=== PATIENT | male | born 1945 | race Caucasian/White ===

== ENCOUNTER 2020-03-01 10:16 | Inpatient (IN) | payer OTHER, MEDICARE ==
[~2020-03-01] VITALS: Ht 177.8 cm; Wt 91.3 kg
[2020-03-01] VITALS (11 sets, daily range): BP systolic 137–179; BP diastolic 65–94
[~2020-03-01 10:16] MED LIST: ASPI-611 PO; ATOR20TA66 PO; CLOP75TA33 PO; LOSA100T57 PO; METF-438 PO; METO-384 PO; NITR0.4T51 SL; TIMO5DRO36 EACHEYE; XAL0.005OS OP
[2020-03-01] MEDS ORDERED: aspirin 81mg tab.chew PO ONE (10:30)
[2020-03-01] MEDS ORDERED: LIDOcaine 1% (10mg/ml)w/preservative injection 20ml MDV ONE (10:33)
[2020-03-01] MEDS ORDERED: iohexol 350 MG/1 ML 200ml bottle ONE (10:33)
[2020-03-01] MEDS ORDERED: fentaNYL/PF 50MCG/1 ML 2ML syringe ONE (10:33)
[2020-03-01] MEDS ORDERED: midazolam 2 mg/2 ml injection ONE (10:33)
[2020-03-01] MEDS ORDERED: heparin 1,000unit/ml 10ml vial 10 ML ONE (10:33)
[2020-03-01] MEDS ORDERED: iohexol 350 MG/ML 50ML vial IV ONE (10:33)
[2020-03-01] MEDS ORDERED: AMLO-94 PO (10:40)
[2020-03-01] MEDS ORDERED: GLIP5TAB13 PO (10:40)
--- NOTE | 2020-03-01 10:44 | NUR ---
PLEASE CALL [facility] [phone] TO UPDATE IN REGARDS TO PT
[2020-03-01 10:45] LABS: BASOPHILS % (AUTO) 0.3 % (0-1); EOSINOPHILS # (AUTO) 0.1 X10'3 (0-0.9); LYMPHOCYTES # (AUTO) 1.9 X10'3 (1.1-4.8); LYMPHOCYTES % (AUTO) 21.6 % (21-51); MEAN CORPUSCULAR HEMOGLOBIN 31.8 PG (27.0-31.0); MEAN CORPUSCULAR HGB CONC 34.6 g/dL (33.0-36.5); MEAN PLATELET VOLUME 8.9 FL (7.4-10.4); MONOCYTES # (AUTO) 0.6 X10'3 (0-0.9); MONOCYTES % (AUTO) 6.9 % (2-12); NEUTROPHILS # (AUTO) 6.3 X10'3 (1.8-7.7); NEUTROPHILS % (AUTO) 70.2 % (42-75); PLATELET COUNT 246 X10'3 (140-440); RED BLOOD COUNT 5.33 X10'6 (4.70-6.10); RED CELL DISTRIBUTION WIDTH 13.7 % (11.5-14.5)
[2020-03-01] MEDS ORDERED: heparin 10,000 units/1 ML INJ IV ONE ×2 (10:45→10:55)
[2020-03-01] MEDS ORDERED: heparin 10,000 units/1 ML INJ IV PRN (10:45)
[2020-03-01] MEDS ORDERED: heparin 25,000 UNIT/250ml bag 250 ML IV SCH (10:45)
--- NOTE | 2020-03-01 10:48 | NUR ---
PATIENT TO [facility] AT THIS TIME, DR MARTINEZ AT BEDSIDE.
[2020-03-01] MEDS: heparin 25,000 UNIT/250ml bag 250 ML IV SCH (10:53)
[2020-03-01 10:59] LABS: ALANINE AMINOTRANSFERASE 61 U/L (12-78); ALBUMIN 4.2 G/DL (3.4-5.0); ALKALINE PHOSPHATASE 150 IU/L (46-116); ANION GAP 9 (8-16); ASPARTATE AMINO TRANSFERASE 33 U/L (10-37); BILIRUBIN,TOTAL 1.2 MG/DL (0.1-1.0); BLOOD UREA NITROGEN 16 MG/DL (7-18); BUN/CREATININE RATIO 15.4 (5.4-32.0); CALCIUM 9.3 MG/DL (8.5-10.1); CHLORIDE 101 MMOL/L (99-107); CREATININE 1.04 MG/DL (0.60-1.10); GLUCOSE 360 MG/DL (70-104); POTASSIUM 4.1 MMOL/L (3.5-5.1); SODIUM 137 MMOL/L (135-145); TOTAL CARBON DIOXIDE 27.1 MMOL/L (24-32); TOTAL PROTEIN 8.3 G/DL (6.4-8.2); eGFR 70 ML/MIN
[2020-03-01] MEDS ORDERED: nitroGLYCERIN-Tridil 50MG/D5W 250 ML IV ONE (10:59)
[2020-03-01] MEDS ORDERED: tirofiban 5mg in NS 100mL 100 ML IV ONE (11:03)
[2020-03-01] MEDS ORDERED: ticagrelor 90mg tablet ONE (11:38)
--- NOTE | 2020-03-01 11:40 | NUR ---
Received report from Jodie in IR.
--- NOTE | 2020-03-01 12:20 | NUR ---
Patient to room with 2 IR nurses and 1 tech, patient placed on monitor has ST elevation in leads AVF, II, III and AVR, with ST depression in AVL lead, MD aware of all the ST elevation and Depression, patient has a Right groin sheath, bruising noted from previous sheath placement from last Saturday noted and observed with IR nurse. Patient in good spirits, ART SBP high MD aware no orders to medicate. Per IR nurse heparin is to be turned off at 0400 03/02/20 once ACT is below 180 sheath can be pulled manual pressure to be applied and a femstop placed after, flat bed rest for 7 hours once sheath is pulled.
[2020-03-01] MEDS ORDERED: aspirin 81mg tab.chew PO SCH (12:33)
[2020-03-01] MEDS ORDERED: carvedilol 6.25mg tablet PO SCH (12:33)
[2020-03-01] MEDS ORDERED: OXAZEpam 15mg capsule PO PRN (12:35)
[2020-03-01] MEDS ORDERED: magnesium hydroxide 30ml (MOM) UD suspension PO PRN (12:35)
[2020-03-01] MEDS ORDERED: cyclobenzaprine 10mg tablet PO PRN (12:35)
[2020-03-01] MEDS ORDERED: amLODIPine 5mg tablet PO SCH (12:35)
[2020-03-01] MEDS ORDERED: acetaminophen 325mg tablet PO PRN (12:35)
[2020-03-01] MEDS ORDERED: HYDROcodone/acetaminophen 10/325mg tab PO PRN (12:35)
[2020-03-01] MEDS ORDERED: lisinopril 20mg tablet PO SCH (12:35)
[2020-03-01] MEDS ORDERED: glucagon, human recombinant 1mg kit SUBCUT PRN (15:15)
[2020-03-01] MEDS ORDERED: dextrose 50%-water 50ml dispensing syringe IV PRN ×2 (15:15)
[2020-03-01] MEDS ORDERED: dextrose ORAL solution 15 GM/59 ML bottle PO PRN ×2 (15:15)
[2020-03-01] MEDS ORDERED: MESSAGE TO PHARMACY PO ONE (15:15)
--- NOTE | 2020-03-01 15:22 | NUR ---
Called DR Kahn informed him of patients high blood sugar of 322, received a hyperglycemic protocol orders, no other new orders at this time
--- NOTE | 2020-03-01 18:18 | NUR ---
Problems reprioritized. Patient report given, questions answered & plan of care reviewed with Emma Dimas .
--- NOTE | 2020-03-01 18:35 | NUR ---
Patient in room CICU 2009. I have received report from rosa may and had the opportunity to ask questions and assume patient care.
--- NOTE | 2020-03-01 19:07 | NUR ---
troponin level 77.65. call service called. awaiting to be called back. Addendum: 03/01/20 at 1909 by Emma Carr RN trop level 77.05
[2020-03-01] MEDS: HYDROcodone/acetaminophen 10/325mg tab PO PRN (19:13)
[2020-03-01] MEDS: carvedilol 6.25mg tablet PO SCH (19:14)
[2020-03-01] MEDS: insulin Lispro (HumaLOG) vial - multi-dose SQ SCH ×2 (19:24→21:11)
--- NOTE | 2020-03-01 19:27 | NUR ---
no response from jessica. answering service paged. critical trop expected value post stent
[2020-03-01] MEDS: insulin glargine (Lantus) pen - multi-dose SQ SCH (21:12)
[2020-03-02] VITALS (19 sets, daily range): BP systolic 103–178; BP diastolic 56–87
[2020-03-02 01:47] LABS: BASOPHILS % (AUTO) 0.2 % (0-1); EOSINOPHILS % (AUTO) 0.3 % (0-6); HEMATOCRIT 41.7 % (42.0-52.0); HEMOGLOBIN 14.7 g/dl (14.0-17.9); LYMPHOCYTES % (AUTO) 9.9 % (21-51); MEAN CORPUSCULAR HEMOGLOBIN 31.8 PG (27.0-31.0); MEAN CORPUSCULAR HGB CONC 35.1 g/dL (33.0-36.5); MEAN CORPUSCULAR VOLUME 90.5 FL (78-98); MEAN PLATELET VOLUME 8.8 FL (7.4-10.4); MONOCYTES # (AUTO) 0.8 X10'3 (0-0.9); MONOCYTES % (AUTO) 7.8 % (2-12); NEUTROPHILS % (AUTO) 81.8 % (42-75); PLATELET COUNT 195 X10'3 (140-440); RED BLOOD COUNT 4.61 X10'6 (4.70-6.10); RED CELL DISTRIBUTION WIDTH 13.7 % (11.5-14.5); WHITE BLOOD COUNT 9.8 X10'3 (4.5-11.0)
[2020-03-02 01:58] LABS: ALANINE AMINOTRANSFERASE 73 U/L (12-78); ALBUMIN 3.3 G/DL (3.4-5.0); ALKALINE PHOSPHATASE 108 IU/L (46-116); ANION GAP 10 (8-16); ASPARTATE AMINO TRANSFERASE 203 U/L (10-37); BILIRUBIN,TOTAL 0.9 MG/DL (0.1-1.0); BLOOD UREA NITROGEN 14 MG/DL (7-18); BUN/CREATININE RATIO 15.4 (5.4-32.0); CALCIUM 8.9 MG/DL (8.5-10.1); CHLORIDE 100 MMOL/L (99-107); CHOL/HDL RATIO 2.6 (0.00-4.99); CHOLESTEROL 103 MG/DL (0-200); CREATININE 0.91 MG/DL (0.60-1.10); GLUCOSE 249 MG/DL (70-104); HDL CHOLESTEROL 40 MG/DL (35-60); LDL CHOLESTEROL 48 MG/DL (50-100); POTASSIUM 3.6 MMOL/L (3.5-5.1); SODIUM 134 MMOL/L (135-145); TOTAL CARBON DIOXIDE 24.5 MMOL/L (24-32); TOTAL PROTEIN 6.7 G/DL (6.4-8.2); TRIGLYCERIDES 97 MG/DL (20-135); eGFR 82 ML/MIN
--- NOTE | 2020-03-02 06:08 | NUR ---
istat 149, arterial line removed. manual pressure held for 20 min, no bleeding or hematoma present. femstop applied. pedal pulses present. will continue to monitor.
--- NOTE | 2020-03-02 06:49 | NUR ---
Patient in room CICU 2009. I have received report from Emma PANG and had the opportunity to ask questions and assume patient care.
[2020-03-02] MEDS: HYDROcodone/acetaminophen 10/325mg tab PO PRN (06:54)
[2020-03-02] MEDS: carvedilol 6.25mg tablet PO SCH ×2 (07:38→19:28)
[2020-03-02] MEDS: amLODIPine 5mg tablet PO SCH (07:38)
[2020-03-02] MEDS: ticagrelor 90mg tablet PO SCH ×2 (07:38→19:37)
[2020-03-02] MEDS: lisinopril 20mg tablet PO SCH (07:39)
[2020-03-02] MEDS: aspirin 81mg tab.chew PO SCH (07:39)
[2020-03-02] MEDS: insulin Lispro (HumaLOG) vial - multi-dose SQ SCH ×4 (09:25→21:47)
[2020-03-02] MEDS: heparin 25,000 UNIT/250ml bag 250 ML IV SCH (11:53)
--- NOTE | 2020-03-02 12:30 | NUR ---
Fem stop off, no signs or symptoms of hematoma or bleeding will continue to monitor
--- NOTE | 2020-03-02 13:56 | NUR ---
Dr. Kahn by to round on patient, stated that patient can be transferred to PCU with tele with same orders, EKG in AM and ambulate
[2020-03-02 14:43] LABS: TROPONIN I 34.55 NG/ML (0.0-0.05)
--- NOTE | 2020-03-02 14:44 | NUR ---
lab called with critical troponin 34.55, called Dr. Kahn's office they will page him with the troponin level
--- NOTE | 2020-03-02 14:51 | NUR ---
DM consult, A1c 9.5, patient seen at bedside and given written DM education handout with verbal review. Pt reports he noticed his eating habits were not how he felt they should be and about a week ago threw away the "junk" food in his kitchen and is eating consistent CHO meals to help better manage his BG, reports he takes his DM meds as prescribed. Addendum: 03/02/20 at [address] Amended: Links added.
--- NOTE | 2020-03-02 15:00 | NUR ---
Called report to maylin PANG ACCE unit, all questions answered.
--- NOTE | 2020-03-02 15:00 | NUR ---
Patient in room MED 309. I have received report from Bell NEUROPSYCHIATRIST and had the opportunity to ask questions and assume patient care.
--- NOTE | 2020-03-02 15:15 | NUR ---
Pt assessment completed and this nurse agrees with prior assessment done by Bell in ICU with no changes noted. Pt VSS denies any pain. He denies any needs at this time. Call light in reach. Addendum: 03/02/20 at 1702 by Kendy Plummer RN error pt assessed at 1530 after arriving to room 309. Pt assessment completed and this nurse agrees with prior assessment done by Bell in ICU with no changes noted. Pt VSS denies any pain. He denies any needs at this time. Call light in reach.
--- NOTE | 2020-03-02 15:20 | NUR ---
Patient transferred to YARA Larry RN at bedside, belongings, chart and meds given to Kendy PANG
--- NOTE | 2020-03-02 15:30 | NUR ---
R groin site is free from s/s of complications, bleeding, and distal pulses present.
--- NOTE | 2020-03-02 18:30 | NUR ---
Problems reprioritized. Patient report given, questions answered & plan of care reviewed with Jerrod PANG.
[2020-03-02] MEDS: insulin glargine (Lantus) pen - multi-dose SQ SCH (21:45)
--- NOTE | 2020-03-03 00:03 | NUR ---
Patient in room MED 309. I have received report from Kendy PANG and had the opportunity to ask questions and assume patient care. Addendum: 03/03/20 at 0003 by Jerrod Vera RN amend time for 03/02 @ 2202
[2020-03-03 03:00] VITALS: BP 109/65
[2020-03-03 06:00] VITALS: BP 110/67
--- NOTE | 2020-03-03 06:30 | NUR ---
Problems reprioritized. Patient report given, questions answered & plan of care reviewed with Rachel PANG.
--- NOTE | 2020-03-03 06:37 | NUR ---
Patient in room MED 309. I have received report from octavia may and had the opportunity to ask questions and assume patient care.
[2020-03-03 08:01] VITALS: BP_SYST 110
[2020-03-03] MEDS: lisinopril 20mg tablet PO SCH (08:01)
[2020-03-03] MEDS: amLODIPine 5mg tablet PO SCH (08:03)
[2020-03-03] MEDS: aspirin 81mg tab.chew PO SCH (08:03)
[2020-03-03] MEDS: ticagrelor 90mg tablet PO SCH (08:03)
[2020-03-03] MEDS: carvedilol 6.25mg tablet PO SCH (08:03)
[2020-03-03] MEDS: insulin Lispro (HumaLOG) vial - multi-dose SQ SCH (09:10)
[2020-03-03] MEDS ORDERED: CARV6.253 PO (10:02)
[2020-03-03] MEDS ORDERED: ATOR20TA66 PO (10:02)
[2020-03-03] MEDS ORDERED: TICA90TA PO (10:02)
--- NOTE | 2020-03-03 11:30 | NUR ---
reviewed all discharge instructions,obtained pts meds from pharmacy,prescriptions faxed to [facility] and confirmed, pt aware of need for f/u appts,SL dc'd left hand and right ac ,both sites clear,pt dc;d via w/c with all belongings
[2020-03-03] MEDS ORDERED: aspirin 81mg tab.chew ONE (12:00)
[2020-03-03] MEDS ORDERED: heparin, porcine-25,000 units/D5-250ml premix IV ONE (12:00)
[2020-03-03] MEDS ORDERED: heparin 10,000 units/1 ML INJ ONE (12:00)
== END 2020-03-03 12:11 | disposition home or self-care (01) | DRG 250 ==
LOC: ER 10:16 → CICU 2S 12:10 → MED 3N 03-02 15:20
PROVIDERS: ADMIT Internal Medicine Cardiovascular Disease; ATTEND Internal Medicine Cardiovascular Disease
PROC: 4A023N7 Measurement of Cardiac Sampling and Pressure, Left Heart, Percutaneous Approach (ICD-10-PCS; principal; 2020-03-01)
PROC: 02703ZZ Dilation of Coronary Artery, One Artery, Percutaneous Approach (ICD-10-PCS; 2020-03-01)
PROC: B2111ZZ Fluoroscopy of Multiple Coronary Arteries using Low Osmolar Contrast (ICD-10-PCS; 2020-03-01)
PROC: B2151ZZ Fluoroscopy of Left Heart using Low Osmolar Contrast (ICD-10-PCS; 2020-03-01)
DX: T82.867A Thrombosis due to cardiac prosthetic devices, implants and grafts, initial encounter (principal); I21.3 ST elevation (STEMI) myocardial infarction of unspecified site; E11.9 Type 2 diabetes mellitus without complications; E78.5 Hyperlipidemia, unspecified; I10 Essential (primary) hypertension; I25.10 Atherosclerotic heart disease of native coronary artery without angina pectoris; Y84.0 Cardiac catheterization as the cause of abnormal reaction of the patient, or of later complication, without mention of misadventure at the time of the procedure; L40.9 Psoriasis, unspecified; I25.2 Old myocardial infarction; Z79.899 Other long term (current) drug therapy; Z79.82 Long term (current) use of aspirin; Z79.84 Long term (current) use of oral hypoglycemic drugs; Z90.49 Acquired absence of other specified parts of digestive tract; Z87.891 Personal history of nicotine dependence; Y92.89 Other specified places as the place of occurrence of the external cause
CPT/HCPCS: 93306; 93458; 96365; 96376; 99291; C9606; 36415; 71045; 80053; 80061; 82948; 84484; 85025; 85347; 85730; 87081; 93005; 99152; 99153; A4620; A6258; C1725; C1751; C1769; G0378; J1644; J1815; J2001; J2250; J3010; J3246; J3490; J7040; Q9967